=== PATIENT | female | born 1980 | race American Indian/Alaskan Native ===

== ENCOUNTER 2021-07-16 15:25 | Inpatient (IN) | payer OTHER, MEDICAID ==
[2021-07-16] MEDS ORDERED: LACTATED RINGERS 1,000 ML ONE (17:38)
[2021-07-16] MEDS ORDERED: METHYLERGONOVINE MALEATE 0.2 MG/ML VIAL IM PRN (18:47)
[2021-07-16] MEDS ORDERED: ePHEDrine SULFATE 50 MG/1 ML INJ IV PRN (18:47)
[2021-07-16] MEDS ORDERED: PROMETHAZINE 25 MG TAB PO PRN (18:47)
[2021-07-16] MEDS ORDERED: NalbUPHINE 10 MG/1 ML INJ IV PRN (18:47)
[2021-07-16] MEDS ORDERED: fentaNYL 100 MCG/2 ML INJ IV PRN (18:47)
[2021-07-16] MEDS ORDERED: ONDANSETRON 4 MG/2 ML INJ IV PRN (18:47)
[2021-07-16] MEDS ORDERED: CARBOPROST TROMETHAMINE 250 MCG/1 ML INJ IM PRN (18:47)
[2021-07-16] MEDS ORDERED: miSOPROStol 200 MCG TAB PR PRN (18:47)
[2021-07-16] MEDS ORDERED: OXYTOCIN 10 UNIT/1 ML INJ IM PRN (18:47)
[2021-07-16] MEDS ORDERED: TERBUTALINE 1 MG/1 ML INJ SUB-Q PRN (18:47)
[2021-07-16] MEDS ORDERED: LIDOCAINE (2%) 20 MG/1 ML VIAL 20 ML MDV INFILTRATI ONE (18:47)
[2021-07-16] MEDS ORDERED: MINERAL OIL 30 ML ORAL LIQD PO PRN (18:47)
[2021-07-16] MEDS ORDERED: LOPERAMIDE 2 MG CAP PO PRN (18:47)
[2021-07-16] MEDS ORDERED: ACETAMINOPHEN 325 MG TAB PO PRN (18:47)
--- NOTE | 2021-07-16 18:47 | History and Physical Report ---
History of Present Illness Date of examination: 07/16/21 Date of admission: 07/16/21 Chief complaint: Sent from clinic for BPP History of present illness: at 39.3wks by Past History Past Medical History: other (anterior fibroid with anemia, also elevated ALT with normal BP) Past Surgical History: no surgical history Family/Genetic History: none Social history: no significant social history - Obstetrical History Expected Date of Delivery: 07/20/21 Actual Gestation: 39 Week(s) 4 Day(s) : 1 Number of Living Children: 0 Medications and Allergies Allergies Allergy/AdvReac Type Severity Reaction Status Date / Time No Known Allergies Allergy Unverified 08/02/16 20:05 Home Medications Medication Instructions Recorded Confirmed Last Taken Type Famotidine [Pepcid] 20 mg PO BID #30 tablet 08/03/16 07/16/21 07/15/21 Rx Cholecalciferol (Vitamin D3) 2,000 unit PO QDAY 07/16/21 07/16/21 07/16/21 History [Vitamin D3 2,000 UNIT CAP] Ferrous Sulfate [Feosol] 325 mg PO QDAY 07/16/21 07/16/21 07/16/21 History Pnv No.121/Iron/Folic Acid 1 each PO DAILY 07/16/21 07/16/21 07/16/21 History [ Multivitamin Tablet] Review of Systems All systems: negative (sent from clinic for BPP) - Vital Signs Vital signs: Vital Signs Pulse Pulse Ox 92 H 100 07/16/21 17:37 07/16/21 17:37 Temp Pulse Resp BP Pulse Ox 94 H 100 07/16/21 18:17 07/16/21 18:17 - Physical Exam Breasts: Positive: deferred Cardiovascular: Regular rate Lungs: Positive: Normal air movement Abdomen: Positive: soft Genitourinary (Female): Positive: normal external genitalia Vagina: Positive: normal moisture Uterus: Positive: enlarged (non-tender) Extremities: Positive: normal - Obstetrical FHR: category 1 Uterine Contraction Monitor Mode: External Cervical Dilatation: 1 (dark brown discharge noted) Cervical Effacement Percentage: 70 station: -1 Uterine Contraction Pattern: Irregular Results Result Diagrams: 07/16/21 17:50 07/16/21 20:22 All other labs normal. Assessment and Plan Term IUP with oligo, anterior fibroid, non-reactive NST in clinic but reassuring in triage here at [facility] 1. Admit to labor and delivery 2. augment with pitocin and sands bulb 3. May have IV pain med or epidural when desired Expect
--- NOTE | 2021-07-16 18:59 | Ultrasound Report ---
US OB limited INDICATION: check fluid. TECHNIQUE: Transabdominal. COMPARISON: None available. FINDINGS: There is a single intrauterine . Heart Rate: 141 beats per minute. Position: cephalic. Amniotic Fluid Volume: decreased Amniotic Fluid Index (MARIANA) in cm (if calculated): 4.3. IMPRESSION: 1. Oligohydramnios Signer Name: Eric Ag MD Signed: 07/16/2021 6:54 PM Workstation Name: [id number]
[2021-07-16] MEDS ORDERED: OXYTOCIN DRIP 30 UNITS/500 ML BAG IV SCH (19:00)
[2021-07-16 19:06] LABS: Hemoglobin 13.1 gm/dl (10.1-14.3); Mean Corpuscular HGB Conc 33 % (30-34); Mean Corpuscular Volume 87 fl (79-97); Platelet Count 265 K/mm3 (140-440); Red Blood Count 4.59 M/mm3 (3.65-5.03); Red Cell Distribution Width 13.8 % (13.2-15.2)
[2021-07-16 21:06] LABS: Alanine Aminotransferase 22 units/L (7-56); Albumin 3.4 g/dL (3.9-5); Blood Urea Nitrogen 6 mg/dL (7-17); Calcium 9.1 mg/dL (8.4-10.2); Hemolysis Index 11
[2021-07-16 21:09] LABS: BUN/Creatinine Ratio 12
[2021-07-16] MEDS: OXYTOCIN DRIP 30 UNITS/500 ML BAG IV SCH (21:57)
[2021-07-16] MEDS: LACTATED RINGERS 1,000 ML IV SCH (22:01)
--- NOTE | 2021-07-17 00:02 | Event Note ---
Date: 07/16/21 Pt evaluated. pitocin now at 2mu/min; Double sands cook's catheter placed under aseptic technique with 60cc to each balloon; initially FHR category I and same became marked in less than 3omins, therefore uterine balloon deflated to 40cc and no improvement and same taken to 0 and then FHR returned to category 1. Pelvic unchanged at 1cm/slightly thickened to 50% and station now -2. IV pitocin turned off and IV fluid bolus given. Ctx every 2-4min, will re-evaluate in 1hr and see if more pelvic change. Anticipate
[2021-07-17] MEDS: LACTATED RINGERS 1,000 ML IV SCH (00:33)
[2021-07-17] MEDS ORDERED: DINOPROSTONE 10 MG VAG SUPP VG ONE (00:50)
--- NOTE | 2021-07-17 01:24 | Event Note ---
Date: 07/17/21 Pt reevaluated and FHR category I with ocassional ctx. Discussed change in plans and cervidil placed with pelvic unchanged. /2 after pt voided. Hopeful for cervical ripening and pt told if fetus does not tolerate same, again this agent will be removed and pitocin will be the next attempt. Pt states she will take a nap at this time. Pt declines any pain med. Hopeful for vaginal delivery.
[2021-07-17] MEDS: PANTOPRAZOLE 40 MG INJ IV SCH (05:06)
--- NOTE | 2021-07-17 06:36 | Ultrasound Report ---
ULTRASOUND OBSTETRIC LIMITED ULTRASOUND BIOPHYSICAL PROFILE INDICATION / CLINICAL INFORMATION: Check fluid level. Clinical Gestational Age (GA) in weeks, days: 39, 3 TECHNIQUE: Transabdominal. COMPARISON: None available. FINDINGS: BREATHING MOVEMENT = 2 GROSS BODY MOVEMENT = 2 TONE = 2 QUALITATIVE AMNIOTIC FLUID VOLUME = 2 TOTAL BIOPHYSICAL SCORE = 8/8 HEART RATE (beats per minute): 141 AMNIOTIC FLUID INDEX (cm) = 4.3 (normal = 7-24 cm) PRESENTATION: Cephalic. ADDITIONAL FINDINGS: None. IMPRESSION: 1. Biophysical Score = 8/8 2. Decreased MARIANA. Signer Name: Jf Hoffman DO Signed: 07/17/2021 6:32 AM Workstation Name: [id number]
--- NOTE | 2021-07-17 11:20 | Progress Note ---
Assessment and Plan A: at 39 weeks, 4 days gestation. Oligohydramnios. GBS negative. P: Continuous EFM. Cervidil cervical ripening. Subjective - Subjective Date of service: 07/17/21 Principal diagnosis: at 39 weeks, 4 days gestation, IOL for ol igohydramnios Patient reports: movement normal, no loss of fluid, no vaginal bleeding, no contractions Objective - Vital Signs Vital Signs: Vital Signs - 12hr 07/17/21 07/17/21 07:30 07:37 Temperature 98.4 F Pulse Rate 87 90 Respiratory 16 Rate Blood Pressure 135/74 Blood Pressure 135/74 [Right] O2 Sat by Pulse 99 Oximetry O2 Sat by Pulse 90 Oximetry [ Bilateral] - Exam Narrative Exam: Patient has Cervidil in place in vagina. Irregular contractions noted. FHR: category 1 - Labs Labs: Abnormal Labs 07/16/21 20:22 Sodium 136 L Carbon Dioxide 18 L BUN 6 L Creatinine 0.5 L Alkaline Phosphatase 157 H Albumin 3.4 L Laboratory Results - last 24 hr 07/16/21 07/16/21 07/16/21 17:50 17:50 17:50 WBC 10.4 RBC 4.59 Hgb 13.1 Hct 40.0 MCV 87 MCH 29 MCHC 33 RDW 13.8 Plt Count 265 Sodium Potassium Chloride Carbon Dioxide Anion Gap BUN Creatinine Estimated GFR BUN/Creatinine Ratio Glucose Calcium Total Bilirubin AST ALT Alkaline Phosphatase Total Protein Albumin Albumin/Globulin Ratio Syphilis IgG Antibody Nonreactive Blood Type O POSITIVE Antibody Screen Negative 07/16/21 20:22 WBC RBC Hgb Hct MCV MCH MCHC RDW Plt Count Sodium 136 L Potassium 3.6 Chloride 102.9 Carbon Dioxide 18 L Anion Gap 19 BUN 6 L Creatinine 0.5 L Estimated GFR > 60 BUN/Creatinine Ratio 12 Glucose 74 Calcium 9.1 Total Bilirubin 0.20 AST 18 ALT 22 Alkaline Phosphatase 157 H Total Protein 6.7 Albumin 3.4 L Albumin/Globulin Ratio 1.0 Syphilis IgG Antibody Blood Type Antibody Screen
--- NOTE | 2021-07-17 18:48 | Event Note ---
Date: 07/17/21 SVE /-4. Category FHR tracing. Irregular mild contractions. Uterus palpates soft between contractions. Pt. to have low dose Pitocin for further cervical ripening.
[2021-07-17] MEDS: OXYTOCIN DRIP 30 UNITS/500 ML BAG IV SCH (19:00)
--- NOTE | 2021-07-18 03:44 | Event Note ---
Date: 07/18/21 SVE 2.580/-3.
--- NOTE | 2021-07-18 03:56 | Anesthesia Consultation ---
Anesthesia Consult and Med Hx Date of service: 07/18/21 - Airway Anesthetic Teeth Evaluation: Poor ROM Head & Neck: Adequate Mental/Hyoid Distance: Adequate Mallampati Class: Class II Intubation Access Assessment: Good - Pulmonary Exam CTA: Yes - Cardiac Exam Cardiac Exam: RRR - Pre-Operative Health Status ASA Pre-Surgery Classification: ASA2 Proposed Anesthetic Plan: Epidural - Pulmonary Hx Smoking: No Hx Asthma: No Hx Respiratory Symptoms: No SOB: No COPD: No Home Oxygen Therapy: No Hx Pneumonia: No Hx Sleep Apnea: No - Cardiovascular System Hx Hypertension: No Hx Coronary Artery Disease: No Hx Heart Attack/AMI: No Hx Angina: No Hx Percutaneous Transluminal Coronary Angioplasty (PTCA): No Hx Cardia Arrhythmia: No Hx Pacemaker: No Hx Internal Defibrillator: No Hx Valvular Heart Disease: No Hx Heart Murmur: No Hx Peripheral Vascular Disease: No - Central Nervous System Hx Neuromuscular Disorder: No Hx Seizures: No CVA: No Hx Back Pain: Yes Hx Psychiatric Problems: No - Gastrointestinal Hx Ulcer: No Hx Gastroesophageal Reflux Disease: Yes - Endocrine Hx Renal Disease: No Hx End Stage Renal Disease: No Hx Cirrhosis: No Hx Liver Disease: No Hx Insulin Dependent Diabetes: No Hx Non-Insulin Dependent Diabetes: No Hx Thyroid Disease: No Hx Hypothyroidism: No Hx Hyperthyroidism: No - Hematic Hx Anemia: No Hx Sickle Cell Disease: No - Other Systems Hx Alcohol Use: No Hx Substance Use: No Hx Cancer: No Hx Obesity: Yes
[2021-07-18] MEDS: LACTATED RINGERS 1,000 ML IV SCH (08:48)
[2021-07-18] MEDS ORDERED: fentaNYL-BUPIV 2 MCG/ML-0.125% 200 MCG/100 ML BAG EPIDURAL ONE (09:19)
--- NOTE | 2021-07-18 09:35 | Progress Note ---
Labor Epidural - Labor Epidural Start Time: 08:50 Stop Time: 09:07 Performed by:: RICKEY UGARTE Procedure: Patient is requesting a laboring epidural for laboring pain. Patient IDed, H&P reviewed, all questions and concerns were answered, and consent was signed. Timeout was performed at bedside. Patient in sitting position. Sterile prep and drape was performed. [3] ml of 1% lidocaine skin wheal at L[3]- L [4]. 18- gauge Tuohy epidural needle was advanced to loss of resistance with saline technique 6cm. Negative CSF negative blood. Epidural catheter advanced to [10] centimeters. [NEGATIVE] Aspiration [NEGATIVE] test dose. Sterile dressing applied. Patient tolerated procedure.
[2021-07-18] MEDS ORDERED: ePHEDrine SULFATE 50 MG/1 ML INJ IV PRN (11:00)
[2021-07-18] MEDS ORDERED: NALOXONE 2 MG/2 ML INJ IV PRN (11:00)
--- NOTE | 2021-07-18 12:25 | Progress Note ---
Subjective - Subjective Date of service: 07/18/21 Principal diagnosis: at 39 weeks, 5 days gestation, IOL for oligohydramnios Interval history: IOL for OLIGO Cervix 2cm/60%/-3 PLlan for DC pitocin Cervidil 25mcg POx1 dose re-evaluate in 4 hours FHT Category 1 [place]: mild, Q2-3 minutes Maternal/ status reassuring overall. Paulette Edgar MD Patient reports: loss of fluid, vaginal bleeding, movement normal, contractions Objective - Vital Signs Vital Signs: Vital Signs - 12hr 07/18/21 07/18/21 07/18/21 07:22 07:53 08:01 Temperature Pulse Rate 101 H 95 H Respiratory Rate Blood Pressure 134/85 131/84 O2 Sat by Pulse Oximetry O2 Sat by Pulse 98 Oximetry [ Bilateral] 07/18/21 07/18/21 07/18/21 08:11 08:16 08:21 Temperature Pulse Rate 103 H 88 86 Respiratory Rate Blood Pressure O2 Sat by Pulse 100 98 98 Oximetry O2 Sat by Pulse Oximetry [ Bilateral] 07/18/21 07/18/21 07/18/21 08:22 08:26 08:31 Temperature Pulse Rate 90 85 96 H Respiratory Rate Blood Pressure 128/77 O2 Sat by Pulse 98 98 Oximetry O2 Sat by Pulse Oximetry [ Bilateral] 07/18/21 07/18/21 07/18/21 08:42 08:47 08:52 Temperature Pulse Rate 102 H 95 H 111 H Respiratory Rate Blood Pressure 138/89 130/79 131/80 O2 Sat by Pulse 100 100 100 Oximetry O2 Sat by Pulse Oximetry [ Bilateral] 07/18/21 07/18/21 07/18/21 08:57 08:58 09:02 Temperature Pulse Rate 107 H 107 H 104 H Respiratory Rate Blood Pressure 131/80 133/81 O2 Sat by Pulse 100 100 Oximetry O2 Sat by Pulse Oximetry [ Bilateral] 07/18/21 07/18/21 07/18/21 09:07 09:12 09:14 Temperature Pulse Rate 109 H 101 H 104 H Respiratory Rate Blood Pressure 150/83 133/79 O2 Sat by Pulse 100 100 Oximetry O2 Sat by Pulse Oximetry [ Bilateral] 07/18/21 07/18/21 07/18/21 09:17 09:21 09:22 Temperature Pulse Rate 97 H 104 H Respiratory 14 Rate Blood Pressure 131/76 131/76 O2 Sat by Pulse 100 99 Oximetry O2 Sat by Pulse Oximetry [ Bilateral] 07/18/21 07/18/21 07/18/21 09:23 09:27 09:28 Temperature Pulse Rate 93 H 109 H 106 H Respiratory Rate Blood Pressure 131/76 139/78 O2 Sat by Pulse 99 Oximetry O2 Sat by Pulse Oximetry [ Bilateral] 07/18/21 07/18/21 07/18/21 09:32 09:37 09:39 Temperature 98.2 F Pulse Rate 91 H 96 H Respiratory 20 Rate Blood Pressure 130/72 129/72 O2 Sat by Pulse 99 99 100 Oximetry O2 Sat by Pulse Oximetry [ Bilateral] 07/18/21 07/18/21 07/18/21 09:42 09:47 09:52 Temperature Pulse Rate 93 H 97 H 101 H Respiratory Rate Blood Pressure 132/71 129/68 O2 Sat by Pulse 99 99 98 Oximetry O2 Sat by Pulse Oximetry [ Bilateral] 07/18/21 07/18/21 07/18/21 09:53 09:57 09:58 Temperature Pulse Rate 100 H 89 96 H Respiratory Rate Blood Pressure 134/71 128/70 O2 Sat by Pulse 99 Oximetry O2 Sat by Pulse Oximetry [ Bilateral] 07/18/21 07/18/21 07/18/21 10:02 10:07 10:12 Temperature Pulse Rate 92 H 98 H 100 H Respiratory Rate Blood Pressure 127/72 O2 Sat by Pulse 98 97 97 Oximetry O2 Sat by Pulse Oximetry [ Bilateral] 07/18/21 07/18/21 07/18/21 10:17 10:22 10:27 Temperature Pulse Rate 91 H 91 H 85 Respiratory Rate Blood Pressure O2 Sat by Pulse 96 96 98 Oximetry O2 Sat by Pulse Oximetry [ Bilateral] 07/18/21 07/18/21 07/18/21 10:32 10:33 10:37 Temperature Pulse Rate 88 90 88 Respiratory Rate Blood Pressure 122/69 O2 Sat by Pulse 97 97 Oximetry O2 Sat by Pulse Oximetry [ Bilateral] 07/18/21 07/18/21 07/18/21 10:42 10:47 10:52 Temperature Pulse Rate 89 93 H 96 H Respiratory Rate Blood Pressure O2 Sat by Pulse 97 98 99 Oximetry O2 Sat by Pulse Oximetry [ Bilateral] 07/18/21 07/18/21 07/18/21 10:57 11:02 11:03 Temperature Pulse Rate 95 H 95 H 90 Respiratory Rate Blood Pressure 127/73 O2 Sat by Pulse 98 100 Oximetry O2 Sat by Pulse Oximetry [ Bilateral] 07/18/21 07/18/21 07/18/21 11:07 11:12 11:17 Temperature Pulse Rate 95 H 92 H 80 Respiratory Rate Blood Pressure O2 Sat by Pulse 100 100 97 Oximetry O2 Sat by Pulse Oximetry [ Bilateral] 07/18/21 07/18/21 07/18/21 11:22 11:27 11:32 Temperature Pulse Rate 87 93 H 87 Respiratory Rate Blood Pressure O2 Sat by Pulse 98 100 97 Oximetry O2 Sat by Pulse Oximetry [ Bilateral] 07/18/21 07/18/21 07/18/21 11:33 11:37 11:42 Temperature Pulse Rate 84 81 80 Respiratory Rate Blood Pressure 116/64 O2 Sat by Pulse 98 99 Oximetry O2 Sat by Pulse Oximetry [ Bilateral] 07/18/21 07/18/21 07/18/21 11:47 11:52 11:57 Temperature Pulse Rate 84 89 83 Respiratory Rate Blood Pressure O2 Sat by Pulse 97 98 98 Oximetry O2 Sat by Pulse Oximetry [ Bilateral] 07/18/21 07/18/21 07/18/21 12:02 12:03 12:07 Temperature Pulse Rate 87 81 85 Respiratory Rate Blood Pressure 118/62 O2 Sat by Pulse 97 98 Oximetry O2 Sat by Pulse Oximetry [ Bilateral] 07/18/21 07/18/21 07/18/21 12:12 12:17 12:22 Temperature Pulse Rate 85 94 H 102 H Respiratory Rate Blood Pressure O2 Sat by Pulse 98 100 100 Oximetry O2 Sat by Pulse Oximetry [ Bilateral] - Labs Labs: Abnormal Labs 07/16/21 20:22 Sodium 136 L Carbon Dioxide 18 L BUN 6 L Creatinine 0.5 L Alkaline Phosphatase 157 H Albumin 3.4 L Laboratory Results - last 24 hr 07/17/21 Unknown Coronavirus (PCR) Negative
[2021-07-18] MEDS ORDERED: miSOPROStol 25 MCG TAB PO ONE (13:00)
[2021-07-18] MEDS ORDERED: miSOPROStol 25 MCG TAB ONE (16:39)
[2021-07-18] MEDS ORDERED: AMPICILLIN/NS 2 GM/100 ML 2 GM/100 ML BAG IV ONE (16:41)
--- NOTE | 2021-07-18 16:43 | Progress Note ---
Subjective - Subjective Date of service: 07/18/21 Principal diagnosis: at 39 weeks, 5 days gestation, IOL for oligohydramnios Interval history: IOL for OLIGO 4cm/80%/-2 Cervidil 25mcg POx1 more dose(2 doses total) FHT Category 1 [place]: mild, Q2 minutes Maternal/ status reassuring overall. Paulette Edgar MD Patient reports: loss of fluid, vaginal bleeding, movement normal, contractions Objective - Vital Signs Vital Signs: Vital Signs - 12hr 07/18/21 07/18/21 07/18/21 07:22 07:53 08:01 Temperature Pulse Rate 101 H 95 H Respiratory Rate Blood Pressure 134/85 131/84 O2 Sat by Pulse Oximetry O2 Sat by Pulse 98 Oximetry [ Bilateral] 07/18/21 07/18/21 07/18/21 08:11 08:16 08:21 Temperature Pulse Rate 103 H 88 86 Respiratory Rate Blood Pressure O2 Sat by Pulse 100 98 98 Oximetry O2 Sat by Pulse Oximetry [ Bilateral] 07/18/21 07/18/21 07/18/21 08:22 08:26 08:31 Temperature Pulse Rate 90 85 96 H Respiratory Rate Blood Pressure 128/77 O2 Sat by Pulse 98 98 Oximetry O2 Sat by Pulse Oximetry [ Bilateral] 07/18/21 07/18/21 07/18/21 08:42 08:47 08:52 Temperature Pulse Rate 102 H 95 H 111 H Respiratory Rate Blood Pressure 138/89 130/79 131/80 O2 Sat by Pulse 100 100 100 Oximetry O2 Sat by Pulse Oximetry [ Bilateral] 07/18/21 07/18/21 07/18/21 08:57 08:58 09:02 Temperature Pulse Rate 107 H 107 H 104 H Respiratory Rate Blood Pressure 131/80 133/81 O2 Sat by Pulse 100 100 Oximetry O2 Sat by Pulse Oximetry [ Bilateral] 07/18/21 07/18/21 07/18/21 09:07 09:12 09:14 Temperature Pulse Rate 109 H 101 H 104 H Respiratory Rate Blood Pressure 150/83 133/79 O2 Sat by Pulse 100 100 Oximetry O2 Sat by Pulse Oximetry [ Bilateral] 07/18/21 07/18/21 07/18/21 09:17 09:21 09:22 Temperature Pulse Rate 97 H 104 H Respiratory 14 Rate Blood Pressure 131/76 131/76 O2 Sat by Pulse 100 99 Oximetry O2 Sat by Pulse Oximetry [ Bilateral] 07/18/21 07/18/21 07/18/21 09:23 09:27 09:28 Temperature Pulse Rate 93 H 109 H 106 H Respiratory Rate Blood Pressure 131/76 139/78 O2 Sat by Pulse 99 Oximetry O2 Sat by Pulse Oximetry [ Bilateral] 07/18/21 07/18/21 07/18/21 09:32 09:37 09:39 Temperature 98.2 F Pulse Rate 91 H 96 H Respiratory 20 Rate Blood Pressure 130/72 129/72 O2 Sat by Pulse 99 99 100 Oximetry O2 Sat by Pulse Oximetry [ Bilateral] 07/18/21 07/18/21 07/18/21 09:42 09:47 09:52 Temperature Pulse Rate 93 H 97 H 101 H Respiratory Rate Blood Pressure 132/71 129/68 O2 Sat by Pulse 99 99 98 Oximetry O2 Sat by Pulse Oximetry [ Bilateral] 07/18/21 07/18/21 07/18/21 09:53 09:57 09:58 Temperature Pulse Rate 100 H 89 96 H Respiratory Rate Blood Pressure 134/71 128/70 O2 Sat by Pulse 99 Oximetry O2 Sat by Pulse Oximetry [ Bilateral] 07/18/21 07/18/21 07/18/21 10:02 10:07 10:12 Temperature Pulse Rate 92 H 98 H 100 H Respiratory Rate Blood Pressure 127/72 O2 Sat by Pulse 98 97 97 Oximetry O2 Sat by Pulse Oximetry [ Bilateral] 07/18/21 07/18/21 07/18/21 10:17 10:22 10:27 Temperature Pulse Rate 91 H 91 H 85 Respiratory Rate Blood Pressure O2 Sat by Pulse 96 96 98 Oximetry O2 Sat by Pulse Oximetry [ Bilateral] 07/18/21 07/18/21 07/18/21 10:32 10:33 10:37 Temperature Pulse Rate 88 90 88 Respiratory Rate Blood Pressure 122/69 O2 Sat by Pulse 97 97 Oximetry O2 Sat by Pulse Oximetry [ Bilateral] 07/18/21 07/18/21 07/18/21 10:42 10:47 10:52 Temperature Pulse Rate 89 93 H 96 H Respiratory Rate Blood Pressure O2 Sat by Pulse 97 98 99 Oximetry O2 Sat by Pulse Oximetry [ Bilateral] 07/18/21 07/18/21 07/18/21 10:57 11:02 11:03 Temperature Pulse Rate 95 H 95 H 90 Respiratory Rate Blood Pressure 127/73 O2 Sat by Pulse 98 100 Oximetry O2 Sat by Pulse Oximetry [ Bilateral] 07/18/21 07/18/21 07/18/21 11:07 11:12 11:17 Temperature Pulse Rate 95 H 92 H 80 Respiratory Rate Blood Pressure O2 Sat by Pulse 100 100 97 Oximetry O2 Sat by Pulse Oximetry [ Bilateral] 07/18/21 07/18/21 07/18/21 11:22 11:27 11:32 Temperature Pulse Rate 87 93 H 87 Respiratory Rate Blood Pressure O2 Sat by Pulse 98 100 97 Oximetry O2 Sat by Pulse Oximetry [ Bilateral] 07/18/21 07/18/21 07/18/21 11:33 11:37 11:42 Temperature Pulse Rate 84 81 80 Respiratory Rate Blood Pressure 116/64 O2 Sat by Pulse 98 99 Oximetry O2 Sat by Pulse Oximetry [ Bilateral] 07/18/21 07/18/21 07/18/21 11:47 11:52 11:57 Temperature Pulse Rate 84 89 83 Respiratory Rate Blood Pressure O2 Sat by Pulse 97 98 98 Oximetry O2 Sat by Pulse Oximetry [ Bilateral] 07/18/21 07/18/21 07/18/21 12:02 12:03 12:07 Temperature Pulse Rate 87 81 85 Respiratory Rate Blood Pressure 118/62 O2 Sat by Pulse 97 98 Oximetry O2 Sat by Pulse Oximetry [ Bilateral] 07/18/21 07/18/21 07/18/21 12:12 12:17 12:22 Temperature Pulse Rate 85 94 H 102 H Respiratory Rate Blood Pressure O2 Sat by Pulse 98 100 100 Oximetry O2 Sat by Pulse Oximetry [ Bilateral] 07/18/21 07/18/21 07/18/21 12:27 12:32 12:37 Temperature Pulse Rate 94 H 95 H 89 Respiratory Rate Blood Pressure 127/71 O2 Sat by Pulse 100 100 100 Oximetry O2 Sat by Pulse Oximetry [ Bilateral] 07/18/21 07/18/21 07/18/21 12:42 12:47 12:52 Temperature Pulse Rate 95 H 93 H 91 H Respiratory Rate Blood Pressure O2 Sat by Pulse 100 100 100 Oximetry O2 Sat by Pulse Oximetry [ Bilateral] 07/18/21 07/18/21 07/18/21 12:57 13:02 13:03 Temperature Pulse Rate 92 H 84 88 Respiratory Rate Blood Pressure 120/68 O2 Sat by Pulse 100 100 Oximetry O2 Sat by Pulse Oximetry [ Bilateral] 07/18/21 07/18/21 07/18/21 13:07 13:12 13:17 Temperature Pulse Rate 83 84 87 Respiratory Rate Blood Pressure O2 Sat by Pulse 100 99 100 Oximetry O2 Sat by Pulse Oximetry [ Bilateral] 07/18/21 07/18/21 07/18/21 13:22 13:27 13:32 Temperature Pulse Rate 83 84 87 Respiratory Rate Blood Pressure O2 Sat by Pulse 98 99 98 Oximetry O2 Sat by Pulse Oximetry [ Bilateral] 07/18/21 07/18/21 07/18/21 13:33 13:37 13:42 Temperature Pulse Rate 86 83 87 Respiratory Rate Blood Pressure 123/69 O2 Sat by Pulse 98 98 Oximetry O2 Sat by Pulse Oximetry [ Bilateral] 07/18/21 07/18/21 07/18/21 13:47 13:52 13:57 Temperature Pulse Rate 86 96 H 94 H Respiratory Rate Blood Pressure O2 Sat by Pulse 99 97 99 Oximetry O2 Sat by Pulse Oximetry [ Bilateral] 07/18/21 07/18/21 07/18/21 14:02 14:03 14:07 Temperature Pulse Rate 91 H 82 81 Respiratory Rate Blood Pressure 124/71 O2 Sat by Pulse 97 98 Oximetry O2 Sat by Pulse Oximetry [ Bilateral] 07/18/21 07/18/21 07/18/21 14:12 14:17 14:22 Temperature Pulse Rate 82 82 83 Respiratory Rate Blood Pressure O2 Sat by Pulse 100 100 99 Oximetry O2 Sat by Pulse Oximetry [ Bilateral] 07/18/21 07/18/21 07/18/21 14:27 14:32 14:33 Temperature Pulse Rate 84 85 85 Respiratory Rate Blood Pressure 120/70 O2 Sat by Pulse 100 99 Oximetry O2 Sat by Pulse Oximetry [ Bilateral] 07/18/21 07/18/21 07/18/21 14:37 14:42 14:47 Temperature Pulse Rate 83 107 H 95 H Respiratory Rate Blood Pressure O2 Sat by Pulse 99 99 100 Oximetry O2 Sat by Pulse Oximetry [ Bilateral] 07/18/21 07/18/21 07/18/21 14:52 14:57 15:02 Temperature Pulse Rate 87 90 95 H Respiratory Rate Blood Pressure O2 Sat by Pulse 100 100 100 Oximetry O2 Sat by Pulse Oximetry [ Bilateral] 07/18/21 07/18/21 07/18/21 15:03 15:07 15:12 Temperature Pulse Rate 91 H 98 H 90 Respiratory Rate Blood Pressure 117/72 O2 Sat by Pulse 100 100 Oximetry O2 Sat by Pulse Oximetry [ Bilateral] 07/18/21 07/18/21 07/18/21 15:17 15:22 15:27 Temperature Pulse Rate 85 86 93 H Respiratory Rate Blood Pressure O2 Sat by Pulse 100 100 100 Oximetry O2 Sat by Pulse Oximetry [ Bilateral] 07/18/21 07/18/21 07/18/21 15:32 15:37 15:42 Temperature Pulse Rate 105 H 92 H 111 H Respiratory Rate Blood Pressure O2 Sat by Pulse 100 100 99 Oximetry O2 Sat by Pulse Oximetry [ Bilateral] 07/18/21 07/18/21 07/18/21 15:47 15:52 15:57 Temperature Pulse Rate 94 H 89 95 H Respiratory Rate Blood Pressure O2 Sat by Pulse 99 98 98 Oximetry O2 Sat by Pulse Oximetry [ Bilateral] 07/18/21 07/18/21 07/18/21 16:02 16:03 16:07 Temperature Pulse Rate 95 H 92 H 92 H Respiratory Rate Blood Pressure 133/81 O2 Sat by Pulse 98 97 Oximetry O2 Sat by Pulse Oximetry [ Bilateral] 07/18/21 07/18/21 07/18/21 16:12 16:17 16:22 Temperature Pulse Rate 96 H 95 H 95 H Respiratory Rate Blood Pressure O2 Sat by Pulse 97 96 96 Oximetry O2 Sat by Pulse Oximetry [ Bilateral] 07/18/21 07/18/21 07/18/21 16:27 16:32 16:33 Temperature Pulse Rate 91 H 98 H 89 Respiratory Rate Blood Pressure 132/81 O2 Sat by Pulse 96 100 Oximetry O2 Sat by Pulse Oximetry [ Bilateral] 07/18/21 16:37 Temperature Pulse Rate 100 H Respiratory Rate Blood Pressure O2 Sat by Pulse 100 Oximetry O2 Sat by Pulse Oximetry [ Bilateral] - Labs Labs: Abnormal Labs 07/16/21 20:22 Sodium 136 L Carbon Dioxide 18 L BUN 6 L Creatinine 0.5 L Alkaline Phosphatase 157 H Albumin 3.4 L
[2021-07-18] MEDS: fentaNYL-BUPIV 2 MCG/ML-0.125% 200 MCG/100 ML BAG EPIDURAL SCH (17:53)
[2021-07-19] MEDS: fentaNYL-BUPIV 2 MCG/ML-0.125% 200 MCG/100 ML BAG EPIDURAL SCH (00:46)
--- NOTE | 2021-07-19 05:43 | Procedure Note ---
OB Delivery Note - Delivery Date of Delivery: 07/19/21 Surgeon: JI BO Estimated blood loss: 200cc - Vaginal Delivery presentation: vertex (Time of delivery: ) Delivery position: OA Intrapartum events: meconium Delivery induction: misoprostol Delivery augmentation: rupture of membranes, pitocin Delivery monitor: external FHT, external uterine Route of delivery: Delivery placenta: spontaneous Delivery cord: 3 umbilical vessels Episiotomy: none Delivery laceration: 1st degree Anesthesia: epidural Delivery comments: Patient pushed to deliver a viable female over an intact perineum with weight 2930gms and 7/9 . Position ROP, no nuchal cord. Spontaneous cry at delivery. Delivery of the anterior shoulder atraumatic, remainder of delivery uncomplicated. Cord clamped cut and baby handed to waiting NIS[facility] team. Spontaneous delivery of an intact placenta with three-vessel cord. Inspection of the perineum cervix and vagina revealed a first degree laceration which was repaired in the usual fashion. Firm fundus, EBL 200ml. All sponge needle and instrument counts correct x2. Mom and baby stable to . Paulette Bo MD
[2021-07-19] MEDS ORDERED: WITCH HAZEL/ GLYCERIN PAD TP PRN (05:45)
[2021-07-19] MEDS ORDERED: diphenhydrAMINE 25 MG CAP PO PRN (05:45)
[2021-07-19] MEDS ORDERED: ONDANSETRON 4 MG/2 ML INJ IV PRN (05:45)
[2021-07-19] MEDS ORDERED: LANOLIN/ZINC/DIMETHICONE (LANSINOH) 7 GM TP PRN (05:45)
[2021-07-19] MEDS ORDERED: PROMETHAZINE 25 MG RECT SUPP PR PRN (05:45)
[2021-07-19] MEDS ORDERED: MAGNESIUM HYDROXIDE (MOM) ORAL LIQD UDC PO PRN (05:45)
[2021-07-19] MEDS ORDERED: HYDROCORTISONE 25 MG RECTAL SUPP PR PRN (05:45)
[2021-07-19] MEDS ORDERED: PROMETHAZINE 25 MG TAB PO PRN (05:45)
[2021-07-19] MEDS ORDERED: HYDROcodone/ACETAMINOPHEN 5-325 MG TAB PO PRN (05:45)
[2021-07-19] MEDS: IBUPROFEN 600 MG TAB PO SCH ×3 (07:15→21:50)
[2021-07-19] MEDS: ACETAMINOPHEN 325 MG TAB PO PRN ×2 (07:17→12:00)
--- NOTE | 2021-07-19 09:44 | Post Anesthesia Evaluation ---
- Post Anesthesia Evaluation Patient Participated: Yes Airway Patent: Yes Stable Respiratory Function: Yes Nausea/Vomiting: No Temp > 96.8F: Yes Pain Manageable: Yes Adequeate Hydration: Yes Anesthesia Complications: No Block Receding Appropriately: Yes Patient on Ventilator: No
[2021-07-19] MEDS: DOCUSATE SODIUM 100 MG CAP PO SCH ×2 (11:43→21:50)
[2021-07-19] MEDS: SENNOSIDES/DOCUSATE SODIUM 8.6/50 MG TAB PO SCH ×2 (11:49→18:48)
[2021-07-19] MEDS: CALCIUM CARBONATE 500 MG TAB CHEW PO PRN ×2 (12:00→21:51)
[2021-07-19] MEDS: PANTOPRAZOLE 40 MG INJ IV SCH (12:04)
[2021-07-19] MEDS ORDERED: TETANUS,DIPH,PERTUSS(ACELL) VACCINE 0.5 ML SYRINGE IM ONE (15:20)
[2021-07-19 17:18] LABS: Hematocrit 31.4 % (30.3-42.9); Hemoglobin 10.2 gm/dl (10.1-14.3)
[2021-07-20] MEDS: IBUPROFEN 600 MG TAB PO SCH ×2 (05:59→12:30)
[2021-07-20] MEDS ORDERED: TETANUS,DIPH,PERTUSS(ACELL) VACCINE 0.5 ML SYRINGE IM ONE (06:00)
[2021-07-20] MEDS: DOCUSATE SODIUM 100 MG CAP PO SCH (11:05)
--- NOTE | 2021-07-20 11:47 | Progress Note ---
Assessment and Plan A: PP Day #1 Stable P: Admit to L&D per Routine Orders D/C Home today Per patient request RTO in 6 Weeks Subjective - Subjective Date of service: 07/20/21 Principal diagnosis: at 39 weeks, 5 days gestation, IOL for oligohydr amnios Patient reports: appetite normal, voiding normally, pain well controlled, flatus, bowel movement, ambulating normally [place]: doing well Objective - Vital Signs Latest vital signs: Vital Signs Temp Pulse Resp BP BP Pulse Ox Pulse Ox 07/20/21 08:30 99 07/20/21 08:03 98.2 F 106 H 18 123/81 100 07/20/21 00:48 98.3 F 103 H 20 115/73 97 07/19/21 20:00 99 07/19/21 16:20 97.9 F 98 H 20 125/77 07/19/21 14:11 16 07/19/21 12:00 16 Intake and Output 07/19/21 07/20/21 07/20/21 22:59 06:59 14:59 Intake Total 600 360 120 Output Total 2100 Balance -1500 360 120 Intake: Oral 600 360 120 Output: Urine 2100 Void 2100 Other: Total, Intake Amount 240 120 120 Total, Output Amount 800 # Voids Void 3 1 1 - Exam Breasts: Present: normal Cardiovascular: Present: Regular rate Lungs: Present: Clear to auscultation, Normal air movement Abdomen: Present: normal appearance, soft, normal bowel sounds Uterus: Present: normal, firm, fundal height below umbilicus Extremities: Present: edema (+1 bilateral )
--- NOTE | 2021-07-20 11:49 | Discharge Summary ---
Providers - Providers Date of Admission: 07/17/21 00:32 Date of discharge: 07/20/21 Attending physician: JI BO MD Primary care physician: JI BO MD Hospitalization Reason for admission: induction of labor Delivery: Episiotomy: none Laceration: 1st degree Other procedures: none complications: none Discharge diagnosis: IUP at term delivered baby: female Condition at discharge: Good Disposition: 01 HOME / SELF CARE / HOMELESS Plan - Provider Discharge Summary Activity: routine, no sex for 6 weeks, no heavy lifting 4 weeks, no strenuous exercise Diet: routine Instructions: routine Additional instructions: [] Smoking cessation referral if applicable(refer to patient education folder for contact #) [] Refer to [facility]'s [facility] Booklet Call your doctor immediately for: * Fever > 100.5 * Heavy vaginal bleeding ( >1 pad per hour) * Severe persistent headache * Shortness of breath * Reddened, hot, painful area to leg or breast * Drainage or odor from incision. * Keep incision clean and dry at all times and follow doctor's instructions regarding bathing/showering - Follow up plan Follow up: JI BO MD [Primary Care Provider] - 6 Weeks
[2021-07-20] MEDS: PANTOPRAZOLE 40 MG INJ IV SCH (12:30)
[2021-07-20 13:59] VITALS: BP 125/74
== END 2021-07-20 14:15 | disposition home or self-care (01) | DRG 806 ==
LOC: TRG 15:25 → APU 16:00 → LD 18:53 → TRG 07-17 00:31 → LD 07-17 00:32 → OB 07-19 08:25
PROVIDERS: ADMIT Obstetrics & Gynecology; ATTEND Obstetrics & Gynecology
PROC: 10E0XZZ Delivery of Products of Conception, External Approach (ICD-10-PCS; principal; 2021-07-19)
PROC: 3E033VJ Introduction of Other Hormone into Peripheral Vein, Percutaneous Approach (ICD-10-PCS; 2021-07-19)
PROC: 3E0R3BZ Introduction of Anesthetic Agent into Spinal Canal, Percutaneous Approach (ICD-10-PCS; 2021-07-19)
PROC: 00HU33Z Insertion of Infusion Device into Spinal Canal, Percutaneous Approach (ICD-10-PCS; 2021-07-19)
PROC: 0HQ9XZZ Repair Perineum Skin, External Approach (ICD-10-PCS; 2021-07-19)
PROC: 3E0234Z Introduction of Serum, Toxoid and Vaccine into Muscle, Percutaneous Approach (ICD-10-PCS; 2021-07-20)
DX: O77.0 Labor and delivery complicated by meconium in amniotic fluid (principal); O41.03X0 Oligohydramnios, third trimester, not applicable or unspecified; Z37.0 Single live birth; Z3A.39 39 weeks gestation of pregnancy; D25.9 Leiomyoma of uterus, unspecified; Z20.822 Contact with and (suspected) exposure to COVID-19; O34.13 Maternal care for benign tumor of corpus uteri, third trimester; O99.62 Diseases of the digestive system complicating childbirth; K21.9 Gastro-esophageal reflux disease without esophagitis; O70.0 First degree perineal laceration during delivery; Z23 Encounter for immunization
CPT/HCPCS: 36415; 59200; 76815; 76819; 80053; 85014; 85018; 85027; 86592; 86850; 86900; 86901; 88307; 90471; 90715; G0378; C9113; J0290; J2590; J7120; U0003